=== PATIENT | female | born 1990 | race Caucasian/White ===

== ENCOUNTER 2021-01-14 04:44 | Inpatient (IN) | payer MEDICAID ==
[~2021-01-14] VITALS: Ht 160 cm; Wt 80.7 kg
[~2021-01-14 04:44] MED LIST: PREN1TAB78 MT
[2021-01-14] MEDS ORDERED: METHYLERGONOVINE MALEATE 0.2 MG/ML IM PRN (05:45)
[2021-01-14] MEDS ORDERED: CARBOPROST TROMETHAMINE 250 MCG/ML AMPUL IM PRN (05:45)
[2021-01-14] MEDS ORDERED: PENICILLIN G POTASSIUM 5 MMU in DEXT 5% WATER 100 ML IV NR (06:00)
[2021-01-14] MEDS ORDERED: LIDOCAINE HCL 1% 20ML VIAL (Pyxis) INJ INFIL SCH (06:00)
[2021-01-14] MEDS ORDERED: MISOPROSTOL 200MCG TABLET VG SCH (06:00)
[2021-01-14] MEDS: BUTORPHANOL TARTRATE 2 MG/ML VIAL IV PRN ×2 (06:23→08:43)
[2021-01-14] MEDS: LACTATED RINGERS 1,000 ML IV SCH ×4 (06:23→20:16)
[2021-01-14] MEDS: DEXT 5%/LR + PITOCIN 20UNITS/L 1,000 ML IV SCH ×2 (06:24→09:32)
[2021-01-14] MEDS ORDERED: ROPIVACAINE HCL/PF EPIDURAL 200 ML EP SCH (07:15)
[2021-01-14 07:28] LABS: BASOPHILS % 0.4 % (0.0-2.0); EOSINOPHILS % 0.2 % (0.0-5.0); HEMATOCRIT. 35.4 % (36.0-48.0); HEMOGLOBIN. 12.1 g/dL (12.0-16.0); LYMPHOCYTES % 14.3 % (20.0-50.0); MEAN CORPUSCULAR HEMOGLOBIN 29.9 pg (28.0-32.0); MEAN CORPUSCULAR VOLUME 87.7 fL (81.0-99.0); MEAN PLATELET VOLUME 8.7 fl (7.4-10.4); MONOCYTES % 6.9 % (2.0-8.0); NEUTROPHILS % 78.2 % (40.0-76.0); PLATELET 226 x1000/uL (130-400); RED BLOOD CELL COUNT 4.03 mill/uL (4.2-5.4); RED CELL DISTRIBUTION WIDTH 13.4 % (11.6-14.6)
[2021-01-14 07:50] LABS: CLARITY URINE CLEAR (CLEAR); COLOR URINE YELLOW (YELLOW); KETONES URINE 2+ (NEGATIVE); LEUKOCYTE ESTERASE URINE NEGATIVE (NEGATIVE); NITRITE URINE NEGATIVE (NEGATIVE); OCCULT BLOOD URINE 2+ (NEGATIVE); PROTEIN URINE NEGATIVE (NEGATIVE); SPECIFIC GRAVITY URINE 1.009 (1.005-1.030)
[2021-01-14 08:33] LABS: *AMPHETAMINES SCREEN URINE NEGATIVE (NEGATIVE)
[2021-01-14 08:34] LABS: *BARBITURATES SCREEN URINE NEGATIVE (NEGATIVE); *BENZODIAZEPINES SCREEN URINE NEGATIVE (NEGATIVE); *COCAINE SCREEN URINE NEGATIVE (NEGATIVE); METHADONE URINE SCREEN NEGATIVE (NEGATIVE); OPIATES URINE SCREEN NEGATIVE (NEGATIVE); PHENCYCLIDINE URINE SCREEN NEGATIVE (NEGATIVE)
[2021-01-14 08:35] LABS: CANNABINOID URINE SCREEN NEGATIVE (NEGATIVE)
[2021-01-14 09:51] LABS: INR 0.9; PARTIAL THROMBOPLASTIN TIME 29.7 sec (23.4-31.0); PROTHROMBIN TIME 10.2 sec (9.6-11.0)
[2021-01-14] MEDS ORDERED: PENICILLIN G POTASSIUM 2.5 MMU in DEXTROSE 5% WATER 50 ML IV SCH (10:00)
[2021-01-14 11:06] LABS: HEPATITIS B SURFACE ANTIGEN NEGATIVE
[2021-01-14] MEDS ORDERED: FENTANYL CITRATE/PF 50MCG/ML 2ML VIAL ONE ×2 (11:18→21:52)
[2021-01-14] MEDS ORDERED: ROPIVACAINE HCL/PF EPIDURAL 200 ML EPI ONE ×2 (11:18→23:38)
[2021-01-14] MEDS ORDERED: LIDOCAINE HCL 2%/EPINEPHRINE 1:100,000 20 ML VIAL INFIL ONE (14:35)
[2021-01-14] MEDS ORDERED: EPHEDRINE SULFATE 50MG/ML VIAL ONE (14:35)
[2021-01-15] MEDS ORDERED: ONDANSETRON HCL 4MG/2ML INJ IV PRN (02:30)
[2021-01-15] MEDS: DEXT 5%/LR + PITOCIN 20UNITS/L 1,000 ML IV SCH (03:22)
[2021-01-15] MEDS ORDERED: DEXT 5%/LR + PITOCIN 20UNITS/L 1,000 ML IV SCH (03:45)
[2021-01-15] MEDS ORDERED: BENZOCAINE/LANOLIN/ALOE VERA SPRAY TOP PRN (03:45)
[2021-01-15] MEDS ORDERED: GLYCERIN/WITCH HAZEL LEAF MEDICATED PAD TOP PRN (03:45)
[2021-01-15] MEDS ORDERED: BISACODYL 10MG SUPP PR PRN (03:45)
[2021-01-15] MEDS ORDERED: HEMORRHOIDAL SUPP PR PRN (03:45)
[2021-01-15] MEDS ORDERED: METHYLERGONOVINE MALEATE 0.2 MG/ML IM PRN (03:45)
[2021-01-15] MEDS ORDERED: DIPHENHYDRAMINE 25MG CAPSULE PO PRN (03:45)
[2021-01-15] MEDS: IBUPROFEN 800MG TABLET PO PRN ×2 (04:34→15:37)
[2021-01-15] MEDS: LACTATED RINGERS 1,000 ML IV SCH (04:37)
[2021-01-15 06:43] VITALS: BP 94/52
[2021-01-15 08:03] VITALS: BP 90/51
[2021-01-15 08:40] LABS: HEMATOCRIT. 31.1 % (36.0-48.0); HEMOGLOBIN. 10.3 g/dL (12.0-16.0); MEAN CORPUSCULAR HEMOGLOBIN 30.1 pg (28.0-32.0); MEAN CORPUSCULAR VOLUME 91.5 fL (81.0-99.0); MEAN PLATELET VOLUME 8.7 fl (7.4-10.4); PLATELET 216 x1000/uL (130-400); RED BLOOD CELL COUNT 3.41 mill/uL (4.2-5.4); RED CELL DISTRIBUTION WIDTH 13.8 % (11.6-14.6)
[2021-01-15] MEDS: PRENATAL VIT/FE FUMARATE/FA TABLET PO SCH (09:05)
[2021-01-15] MEDS: SIMETHICONE 80MG TABLET CHEW PO SCH ×4 (09:06→21:25)
[2021-01-15] MEDS: METHYLERGONOVINE MALEATE 0.2MG TABLET PO SCH ×2 (09:07→15:37)
[2021-01-15 13:59] LABS: PLATELET ESTIMATE NORMAL
[2021-01-15 16:19] VITALS: BP 92/55
[2021-01-15] MEDS: ACETAMINOPHEN WITH CODEINE 300/30MG TABLET PO PRN ×2 (17:08→21:24)
[2021-01-15 20:10] VITALS: BP 101/64
[2021-01-15] MEDS: DOCUSATE SODIUM 100MG CAPSULE PO SCH (21:24)
[2021-01-16] MEDS: IBUPROFEN 400MG TABLET PO PRN ×2 (00:24→06:34)
[2021-01-16 04:40] VITALS: BP 88/43
[2021-01-16 06:57] LABS: BASOPHILS % 0.1 % (0.0-2.0); EOSINOPHILS % 1.1 % (0.0-5.0); HEMATOCRIT. 25.8 % (36.0-48.0); LYMPHOCYTES % 17.1 % (20.0-50.0); MEAN CORPUSCULAR HEMOGLOBIN 31.1 pg (28.0-32.0); MEAN CORPUSCULAR VOLUME 89.1 fL (81.0-99.0); MEAN PLATELET VOLUME 8.4 fl (7.4-10.4); MONOCYTES % 7.7 % (2.0-8.0); PLATELET 216 x1000/uL (130-400); RED CELL DISTRIBUTION WIDTH 13.6 % (11.6-14.6)
[2021-01-16 07:45] VITALS: BP 92/59
[2021-01-16] MEDS ORDERED: TETANUS, DIPHTHERIA, PERTUSSIS VAC/PF 0.5ML (>10YR OLD) IM ONE (08:00)
[2021-01-16] MEDS: FERROUS SULFATE 325MG TABLET PO SCH ×3 (08:00→17:32)
[2021-01-16] MEDS: PRENATAL VIT/FE FUMARATE/FA TABLET PO SCH (08:01)
[2021-01-16] MEDS: SIMETHICONE 80MG TABLET CHEW PO SCH ×4 (08:09→21:13)
[2021-01-16] MEDS ORDERED: INFLUENZA VACCINE 05/PF 0.5 ML SYRINGE IM ONE (10:00)
[2021-01-16] MEDS: IBUPROFEN 800MG TABLET PO PRN ×2 (12:54→18:35)
[2021-01-16 16:00] VITALS: BP 90/49
[2021-01-16 19:10] VITALS: BP 107/46
[2021-01-16] MEDS: DOCUSATE SODIUM 100MG CAPSULE PO SCH (21:13)
[2021-01-17 04:30] VITALS: BP 99/64
[2021-01-17 07:30] VITALS: BP 96/57
[2021-01-17] MEDS: FERROUS SULFATE 325MG TABLET PO SCH ×3 (08:15→19:50)
[2021-01-17] MEDS: SIMETHICONE 80MG TABLET CHEW PO SCH ×3 (08:15→19:51)
[2021-01-17] MEDS: PRENATAL VIT/FE FUMARATE/FA TABLET PO SCH (08:15)
[2021-01-17 16:00] VITALS: BP 106/70
[2021-01-17 19:00] VITALS: BP 98/59
[2021-01-17] MEDS: DOCUSATE SODIUM 100MG CAPSULE PO SCH (19:50)
[2021-01-17] MEDS: IBUPROFEN 800MG TABLET PO PRN (19:50)
[2021-01-17] MEDS: PHENAZOPYRIDINE HCL 100MG TABLET PO SCH (21:34)
[2021-01-17 21:37] LABS: CLARITY URINE CLEAR (CLEAR); COLOR URINE YELLOW (YELLOW); KETONES URINE NEGATIVE (NEGATIVE); LEUKOCYTE ESTERASE URINE NEGATIVE (NEGATIVE); NITRITE URINE NEGATIVE (NEGATIVE); OCCULT BLOOD URINE NEGATIVE (NEGATIVE); PH URINE 7.5 (4.5-8.0); PROTEIN URINE NEGATIVE (NEGATIVE); SPECIFIC GRAVITY URINE 1.007 (1.005-1.030); UROBILINOGEN URINE 0.2 E.U./dL (0.2-1.0)
[2021-01-18 03:00] VITALS: BP 100/61
[2021-01-18 03:18] LABS: CHLORIDE 105 mEq/L (98-107)
[2021-01-18 07:30] VITALS: BP 99/66
[2021-01-18] MEDS: PRENATAL VIT/FE FUMARATE/FA TABLET PO SCH (08:26)
[2021-01-18] MEDS: FERROUS SULFATE 325MG TABLET PO SCH ×3 (08:27→18:11)
[2021-01-18] MEDS: SIMETHICONE 80MG TABLET CHEW PO SCH ×4 (08:27→21:50)
[2021-01-18] MEDS: PHENAZOPYRIDINE HCL 100MG TABLET PO SCH ×3 (08:30→18:12)
[2021-01-18 17:00] VITALS: BP 105/71
[2021-01-18 20:00] VITALS: BP 111/69
[2021-01-18] MEDS: DOCUSATE SODIUM 100MG CAPSULE PO SCH (21:50)
[2021-01-19 03:40] VITALS: BP 109/53
[2021-01-19 07:32] VITALS: BP 110/56
[2021-01-19] MEDS: SIMETHICONE 80MG TABLET CHEW PO SCH (08:00)
[2021-01-19] MEDS: FERROUS SULFATE 325MG TABLET PO SCH (08:59)
[2021-01-19] MEDS: PHENAZOPYRIDINE HCL 100MG TABLET PO SCH (08:59)
[2021-01-19] MEDS: PRENATAL VIT/FE FUMARATE/FA TABLET PO SCH (08:59)
== END 2021-01-19 13:50 | disposition home or self-care (01) | DRG 542 ==
LOC: 8 EST LDRP 04:44 → OBSVTOIN 04:44 → 8EST 01-15 07:15
PROVIDERS: ADMIT Obstetrics & Gynecology; ATTEND Obstetrics & Gynecology
PROC: 10E0XZZ Delivery of Products of Conception, External Approach (ICD-10-PCS; principal; 2021-01-15)
PROC: 0DQR0ZZ Repair Anal Sphincter, Open Approach (ICD-10-PCS; 2021-01-15)
PROC: 3E0R3BZ Introduction of Anesthetic Agent into Spinal Canal, Percutaneous Approach (ICD-10-PCS; 2021-01-15)
PROC: 00HU33Z Insertion of Infusion Device into Spinal Canal, Percutaneous Approach (ICD-10-PCS; 2021-01-15)
PROC: 0W8NXZZ Division of Female Perineum, External Approach (ICD-10-PCS; 2021-01-15)
DX: O99.214 Obesity complicating childbirth (principal); Z37.0 Single live birth; O90.89 Other complications of the puerperium, not elsewhere classified; O70.20 Third degree perineal laceration during delivery, unspecified; Z3A.39 39 weeks gestation of pregnancy; R33.9 Retention of urine, unspecified; Z20.822 Contact with and (suspected) exposure to COVID-19
CPT/HCPCS: 36415; 72170; 80048; 80305; 81003; 85025; 86592; 86703; 86762; 86850; 86900; 87340; 87426; 90686; 90715; 99281; J0595; J2405; J2540; J2590; J2795; J3010; J3490; J7060; J7120; A4315